=== PATIENT | female | born 1955 | race Caucasian/White ===

== ENCOUNTER → 2017-06-15 | Outpatient (CLI) | payer OTHER ==
[~2017-06-15] MED LIST: HORMONE PATCH TD; HYDROCODONE1 TABLET PO; MEDROL 4MG. DOSE4 MG PO
[2017-06-15 19:47] LABS: LYMPH # 1.7 K/mm3 (0.7-4.5)
[2017-06-15 19:55] LABS: HEMOGLOBIN 14.8 g/dL (12.2-16.2)
[2017-06-15 21:24] LABS: BUN 9 mg/dL (7-18)
[2017-06-15 21:33] LABS: GFR (ESTIMATED) 101 ML/MIN (59-)
== END ==
LOC: LAB 19:10
PROVIDERS: Internal Medicine Gastroenterology
DX: R10.13 Epigastric pain (principal)

== ENCOUNTER → 2017-06-16 | Outpatient (CLI) | payer OTHER ==
--- NOTE | 2017-06-16 18:52 | RADIOLOGY REPORT PS360 ---
CT ABD W/ CONTRAST. (Triphasic postcontrast imaging/Hemangioma protocol) HISTORY: RT SIDE ABD PAIN follow-up liver lesion Patient Age: 62 years: Female Ordering Physician: CANDACE PATHAK TECHNIQUE: Helical CT scanning performed through the abdomen following 75 cc Isovue 370.. 30 seconds arterial phase, 62nd venous phase, and 10 minute delayed imaging performed . Sagittal coronal reconstructions on CT workstation . images of pelvis were not included on this study only abdomen ordered COMPARISON :CT abdomen pelvis04/13/2017 without contrast FINDINGS : Lung bases are clear no active disease no lower rib findings may yield flank pain. ABDOMEN: : LIVER. No significant findings. No ductal dilatation -The vague ~ 1 cm low-density area at the medial aspect of right lobe seen on recent CT is not apparent on today's series of postcontrast images. Speaks against a significant lesion.. No significant early enhancement evident. Could be a small hemangioma but unimpressive On further review this patient's imaging file, I note this same area discussed above was evident on a as well as a CT abdomen without contrast. It is unchanged recently. This further confirms its indolent & benign nature. -The Tiny ~ 3 mm cyst at the periphery right lobe liver again noted. - portal vein appears normal. -- Gallbladder is been removed. No no abnormal biliary ductal dilatation. . Pancreas unremarkable Adrenals satisfactory. Kidneys unremarkable. No calculi nor obstruction. Ureters satisfactory down to the mid pelvis. Lower pelvis not imaged since only abdomen requested No retroperitoneal nor mesenteric adenopathy. No additional findings that may yield right flank pain evident Early arterial sequence nicely demonstrates the vascular structures. Aorta appears normal caliber with normal widely patent SMA and celiac artery. The renal arteries appear widely patent bilaterally as well GI tract. Distal esophagus, stomach, duodenal bulb, small bowel satisfactory. Minimal fluid small bowel Bones. Mild degenerative facet changes. Unimpressive.. IMPRESSION: 1. Liver: No significant lesions. No ductal dilatation A.. The Small 1 cm low-density area recently noted at medial aspect right lobe the liver is not seen on today's postcontrast studies. It is only evident on noncontrast studies. . In reviewing old files I see that is stable since [address] This long-term stability supporting benign character. Suspect likely small benign hemangioma B. Small 3 mm cyst at the periphery of right lobe 2. Regarding right flank pain no urinary tract calculi or obstruction. No additional findings at the right abdomen. (Only abdomen was ordered thus mid and lower pelvis was not included)
== END ==
LOC: RAD 17:14
DX: R10.13 Epigastric pain (principal)
CPT/HCPCS: Q9967